=== PATIENT | female | born 1995 | race Caucasian/White ===

== ENCOUNTER 2020-03-27 15:44 | Emergency (ER) | payer OTHER ==
[2020-03-27 15:52] VITALS: BP 135/84; PULSE 88; TEMP 98.7; BMI 27.4
== END 2020-03-27 16:34 | disposition home or self-care (01) ==
LOC: JERFT 15:44
DX: H66.90 Otitis media, unspecified, unspecified ear (principal)
CPT/HCPCS: 99282-25

== ENCOUNTER 2020-03-29 18:22 | Emergency (ER) | payer OTHER ==
[2020-03-29 18:38] VITALS: BP 128/74; PULSE 85; TEMP 97.8; BMI 27.4
[2020-03-29] MEDS ORDERED: IBUPROFEN 400 MG TABLET (FP) PO ONE ×2 (18:57→19:04)
[2020-03-29] MEDS ORDERED: CYCLOBENZAPRINE HCL 10 MG TABLET (FP) PO ONE (18:57)
[2020-03-29] MEDS ORDERED: CYCLOBENZAPRINE HCL 10 MG TABLET (FP) ONE (19:04)
== END 2020-03-29 20:40 | disposition home or self-care (01) ==
LOC: JERFT 18:22
DX: M26.609 Unspecified temporomandibular joint disorder, unspecified side (principal); G50.1 Atypical facial pain
CPT/HCPCS: 99284-25

== ENCOUNTER 2020-03-30 01:07 | Emergency (ER) | payer OTHER ==
[2020-03-30 01:18] VITALS: BP 146/72; PULSE 90; TEMP 97.9; BMI 25.8
[2020-03-30] MEDS ORDERED: IBUPROFEN 600 MG TABLET (FP) PO ONE ×2 (01:33→01:39)
[2020-03-30 02:20] LABS: BASO % 0.5 % (0-2.0); EOS % 2.3 % (0-4.5); HEMATOCRIT 38.6 % (32.4-45.2); LYMPH % 44.8 % (8-40); MCHC 33.6 g/dl (32.0-36.0); MEAN CELL VOLUME 86.3 fl (80-96); MEAN PLT VOLUME 9.5 fl (7.5-11.1); MONO % 6.5 % (3.8-10.2); NEUT % 45.9 % (42.8-82.8); PLATELET COUNT 197 K/MM3 (134-434); RBC 4.47 M/mm3 (3.60-5.2); RDW 12.7 % (11.6-15.6); WHITE BLOOD COUNT 6.7 K/mm3 (4.0-10.0)
[2020-03-30 02:37] LABS: POTASSIUM 4.1 mmol/L (3.5-5.1)
[2020-03-30 02:39] LABS: BLOOD UREA NITROGEN 14.8 mg/dL (7-18); CALCIUM 9.1 mg/dL (8.5-10.1)
[2020-03-30 02:42] LABS: CREATININE 0.6 mg/dL (0.55-1.3)
[2020-03-30 02:44] LABS: BILIRUBIN,TOTAL 0.2 mg/dL (0.2-1); TOT PROT 7.5 g/dl (6.4-8.2)
[2020-03-30] MEDS ORDERED: METOCLOPRAMIDE HCL INJECTION 10 MG/2 ML VIAL IM ONE (03:05)
[2020-03-30] MEDS ORDERED: METOCLOPRAMIDE HCL INJECTION 10 MG/2 ML VIAL ONE (03:07)
== END 2020-03-30 04:27 | disposition home or self-care (01) ==
LOC: JER 01:07
PROC: 3E023GC Introduction of Other Therapeutic Substance into Muscle, Percutaneous Approach (ICD-10-PCS; principal; 2020-03-30)
DX: H66.92 Otitis media, unspecified, left ear (principal)
CPT/HCPCS: 36415; 70450-TC; 70480-TC; 80053; 84703; 85025; 99285-25

== ENCOUNTER 2020-08-31 13:07 | Emergency (ER) | payer OTHER ==
[2020-08-31 13:25] VITALS: BP 120/79; PULSE 121; TEMP 98.2; BMI 28.3
[2020-08-31] MEDS ORDERED: FAMOTIDINE 20 MG TABLET PO ONE (14:40)
[2020-08-31] MEDS ORDERED: ONDANSETRON *ODT* 4 MG TABLET SL ONE (14:40)
[2020-08-31] MEDS ORDERED: ONDANSETRON 4 MG TABLET PO ONE (15:08)
[2020-08-31] MEDS ORDERED: FAMOTIDINE 20 MG TABLET ONE (15:08)
[2020-08-31 15:16] LABS: PH,URINE 5.5 (5.0-8.0); URINE APPEARANCE CLEAR; URINE BILIRUBIN NEGATIVE (NEGATIVE); URINE COLOR YELLOW; URINE GLUCOSE (UA) NEGATIVE (NEGATIVE); URINE KETONE 3+ (NEGATIVE); URINE LEUK ESTERASE NEGATIVE (NEGATIVE); URINE NITRITE NEGATIVE (NEGATIVE); URINE PROTEIN NEGATIVE (NEGATIVE); URINE UROBILINOGEN 0.2 mg/dL (0.2-1.0)
[2020-08-31 15:18] LABS: HCG,QUALITATIVE URINE Negative
[2020-08-31] MEDS ORDERED: IBUPROFEN 600 MG TABLET (FP) PO ONE (16:33)
== END 2020-08-31 16:33 | disposition home or self-care (01) ==
LOC: JER 13:07
DX: K52.9 Noninfective gastroenteritis and colitis, unspecified (principal)
CPT/HCPCS: 81003; 84703; 87086; 99284-25; Q0162